=== PATIENT | male | born 1955 | race Caucasian/White ===

== ENCOUNTER 2020-01-12 06:25 | Day surgery (SDC) | payer MEDICARE, OTHER ==
[~2020-01-12] VITALS: Ht 177.8 cm; Wt 85.3 kg
[~2020-01-12 06:25] MED LIST: CARVEDILOL6.25 MG PO; HYDROCHLOROTHIA25 MG PO; NORVASC10 MG PO; OLMESARTAN MEDO40 MG PO
[2020-01-12] MEDS ORDERED: HYDROCODON-ACE1 EA10 PO (09:35)
[2020-01-12] MEDS ORDERED: CELECOXIB200 MG PO (09:35)
--- NOTE | 2020-01-12 09:45 | NUR ---
01/12/20 0945 Светлана Huang 0932- PT ARRIVES TO PACU EASILY AROUSABLE TO VOICE. RESP EVEN AND UNLABORED. OXYGEN SAT HIGH 90'S TO 100% ON RA. ICE PACK APPLIED TO PT'S RIGHT HAND. RIGHT HAND ELEVATED. 0944- PT SITTING UP IN BED DRINKING ICE WATER. PT TOLERATING WELL.
--- NOTE | 2020-01-12 10:29 | NUR ---
PT IS ALERT, ORIENTED AND SEEMS RELAXED. ALL PTS' QUESTIONS ASKED WERE ANSWERED. PT REQUESTED PRAYER, WILL FOLLOW NEEDED
--- NOTE | 2020-01-15 08:53 | OR ---
[facility] [address] [facility] [place] [address] Signed DATE OF OPERATION: 01/12/2020 SURGEON: Janice Delgado MD PREOPERATIVE DIAGNOSES: 1. Trigger finger, right ring and long. 2. Carpometacarpal arthrosis, right thumb. POSTOPERATIVE DIAGNOSES: 1. Trigger finger, right ring and long. 2. Carpometacarpal arthrosis, right thumb. PROCEDURES PERFORMED: 1. Trigger finger release of right long and ring. 2. Injection, right thumb, carpometacarpal joint. AWNING SPREADER: DOROTHY Pinto. ANESTHESIA: Krishan block. TOURNIQUET TIME: 20 minutes. BRIEF HISTORY: Monica is a 64-year-old gentleman with pain and locking in his hand in addition to difficulty gripping because of thumb pain. Risks and benefits of operative treatment were discussed with him and he elected to proceed. DESCRIPTION OF PROCEDURE: Once consent was obtained, he was taken to the operative room. After adequate anesthesia, he was left on the day surgery cart. The hand table was brought in and the arm was prepped and draped in standard sterile fashion. The CMC joint was injected first. This was done through dorsal approach and 1 mL Kenalog 40, 1 mL of ropivacaine were injected. I then focused on the trigger fingers. The long finger was approached through 1 cm incision and carried through skin and subcutaneous tissue. This was carried down to the A1 vikas. Under loop magnification, this was dissected free of overlying soft tissue and released. The second incision was made along the ring and similar procedure was performed. The patient was then asked to flex his hand, he could Electronically Signed By: JANICE DELGADO MD 01/15/20 0853 PATIENT NAME: MONICA BERMUDEZ OPERATIVE REPORT DATE OF : 51 REPORT #: [id number] PHYSICIAN: JANICE DELGADO MD PCP: PARADISE LILLY MD REPORT IS CONFIDENTIAL AND NOT TO BE RELEASED WITHOUT AUTHORIZATION [facility] [address] [place], [place] [address] Signed fully flex, fully extend with no locking or triggering. Both wounds were copiously irrigated, closed with 3-0 nylon and dressed with bacitracin, Adaptic, 4 x 8's, and gauze. We did inject 6 mL of 0.25% plain Marcaine at the end of the procedure. He tolerated the procedure well. All sponge, needle, and instrument counts were correct. Janice Delgado MD BA/MODL /[id number] Copies: ~ Electronically Signed By: JANICE DELGADO MD 01/15/20 0853 PATIENT NAME: MONICA BERMUDEZ OPERATIVE REPORT DATE OF : 51 REPORT #: [id number] PHYSICIAN: JANICE DELGADO MD PCP: PARADISE LILLY MD REPORT IS CONFIDENTIAL AND NOT TO BE RELEASED WITHOUT AUTHORIZATION
== END 2020-01-12 10:10 | disposition home or self-care (01) ==
LOC: DS 06:25
PROVIDERS: Specialist
PROC: 3E0U33Z Introduction of Anti-inflammatory into Joints, Percutaneous Approach (ICD-10-PCS; 2020-01-12)
PROC: 0LN70ZZ Release Right Hand Tendon, Open Approach (ICD-10-PCS; 2020-01-12)
PROC: 0LN70ZZ Release Right Hand Tendon, Open Approach (ICD-10-PCS; 2020-01-12)
PROC: 3E0U3BZ Introduction of Anesthetic Agent into Joints, Percutaneous Approach (ICD-10-PCS; principal; 2020-01-12 06:45)
DX: M65.341 Trigger finger, right ring finger (principal); M65.331 Trigger finger, right middle finger; M18.11 Unilateral primary osteoarthritis of first carpometacarpal joint, right hand; Z79.899 Other long term (current) drug therapy
CPT/HCPCS: 01810; J0690; J2250; J2704; J2795; J3301; J7121

== ENCOUNTER 2024-03-11 17:05 | Emergency (ER) | payer MEDICARE, OTHER ==
[~2024-03-11] VITALS: Ht 177.8 cm; Wt 81.8 kg
[~2024-03-11 17:05] MED LIST changes: +CELECOXIB200 MG PO; +HYDROCODON-ACE1 EA10 PO
[2024-03-11] MEDS ORDERED: NITROGLYCERIN 0.4 MG SUBL SL PRN (17:15)
[2024-03-11 17:27] LABS: BASOPHILS 1.4 % (0-2); EOSINOPHILS 6.1 % (0-6); HEMATOCRIT 43.8 % (35.0-50.0); LYMPHOCYTES 32.6 % (24-44); MCH 33.5 (27-36); MCHC 36.4 g/dl (30-36); MCV 91.9 fl (81-99); MONOCYTES 9.3 % (0-12); NEUTROPHILS 50.6 % (39-80); PLATELET COUNT 288 K/uL (140-440); RBC 4.77 M/ul (4.3-5.7); RDW 13.5 (10.5-15.0)
[2024-03-11] MEDS ORDERED: CARVEDILOL3.125 MG PO (17:29)
[2024-03-11 17:43] LABS: ALBUMIN 3.7 g/dL (3.4-5.0); ALBUMIN/GLOBULIN RATIO 1.12 (1.1-2.4); ANION GAP 10.9 (7-21); BILIRUBIN, TOTAL 0.5 ng/dL (0.2-1.0); BUN/CREATININE RATIO 14.67 (6.0-28.6); CALCIUM 9.2 mg/dL (8.5-10.1); CREATININE, SERUM 1.09 mg/dL (0.70-1.30); MAGNESIUM 2.2 mg/dL (1.8-2.4); POTASSIUM 3.9 mmol/L (3.5-5.1)
[2024-03-11 20:58] VITALS: BP 153/80
--- NOTE | 2024-03-12 20:50 | EKG ---
[facility] [address] [facility] [place] [address] Signed Sinus bradycardia Nonspecific T wave abnormality Abnormal ECG When compared with ECG of 09-JAN-2020 14:32, No significant change was found Confirmed by Ivan Guzman MD ([id number]) on 03/12/2024 8:50:29 PM Electronically Signed By: IVAN GUZMAN DO 03/12/242049 PATIENT NAME: MONICA BERMUDEZ TAVIA Electrocardiogram DATE OF : 51 PHYSICIAN: IVAN GUZMAN DO REPORT #: [id number] REPORT IS CONFIDENTIAL AND NOT TO BE RELEASED WITHOUT AUTHORIZATION
--- NOTE | 2024-03-12 20:51 | EKG ---
[facility] [address] [facility] [place] [address] Signed Sinus rhythm with premature atrial complexes Nonspecific T wave abnormality Abnormal ECG When compared with ECG of 11-MAR-2024 17:17, (Unconfirmed) premature atrial complexes are now present Confirmed by Ivan Guzman MD ([id number]) on 03/12/2024 8:50:59 PM Electronically Signed By: IVAN GUZMAN DO 03/12/242050 PATIENT NAME: MONICA BERMUDEZ TAVIA Electrocardiogram DATE OF : 51 PHYSICIAN: IVAN GUZMAN DO REPORT #: [id number] REPORT IS CONFIDENTIAL AND NOT TO BE RELEASED WITHOUT AUTHORIZATION
--- NOTE | 2024-03-17 14:28 | EKG ---
[facility] [address] [facility] [place], [place] [address] Signed EKG completed, results pending confirmation PATIENT NAME: MARQUEZ BERMUDEZHERI SQUIRES Electrocardiogram DATE OF : 51 PHYSICIAN: PRELIMINARY REPORT #: [id number] REPORT IS CONFIDENTIAL AND NOT TO BE RELEASED WITHOUT AUTHORIZATION
== END 2024-03-11 20:58 | disposition home or self-care (01) ==
LOC: ED 17:05
PROVIDERS: Emergency Medicine
DX: R07.89 Other chest pain (principal); M54.9 Dorsalgia, unspecified; R51.9 Headache, unspecified; R06.02 Shortness of breath; I10 Essential (primary) hypertension; Z79.899 Other long term (current) drug therapy
CPT/HCPCS: 36415; 70450; 71045; 80053; 83735; 84484; 85025; 93005; 93010; 99285-25